=== PATIENT | male | born 1995 | race Two or more races ===

== ENCOUNTER 2017-02-05 23:26 | Emergency (ER) | payer MEDICAID ==
--- NOTE | 2017-02-06 00:06 | ED Physician Chart ---
Chief Complaint/HPI - Patient Information Date Seen:: 02/06/17 Time Seen:: 00:00 Chief Complaint:: rash History of Present Illness:: pt here for 1 day of itchy rash. it is all over. he never had this before. no sob. no oral edema. no wheeze. no fever. no BEY. no stiff neck pt has been unusually anxious lately. he is upset about something w his employer (he works as [employer])...he wont elaborate on why he is upset. he felt like he might be getting sick yesterday so he took some kind of antibiotic that he has from [place]. name unknown... He moved from [place] 1 yr ago. no travel in recent months. no one else w rash in home. he has been very anxious lately. Allergies:: Allergies Allergy/AdvReac Type Severity Reaction Status Date / Time No Known Allergies Allergy Verified 02/05/17 23:59 Historian:: Patient, Family Member Review of Systems - Review of Systems General/Constitutional: No fever, No chills, No weight loss, No weakness, No diaphoresis, No edema, No loss of appetite Skin: Skin lesions, Rash, No bruising Head: No headache, No light-headedness Eyes: No loss of vision, No pain, No diplopia ENT: No earache, No nasal drainage, No sore throat, No tinnitus Neck: No neck pain, No swelling, No thyromegaly, No stiffness, No mass noted Cardio Vascular: No chest pain, No palpitations, No PND, No orthopnea, No edema Pulmonary: No SOB, No cough, No sputum, No wheezing GI: No nausea, No vomiting, No diarrhea, No pain, No melena, No hematochezia, No constipation, No hematemesis G/U: No dysuria, No frequency, No hematuria Musculoskeletal: No bone or joint pain, No back pain, No muscle pain Endocrine: No polyuria, No polydipsia Psychiatric: No prior psych history, No depression, No anxiety, No suicidal ideation Hematopoietic: No bruising, No lymphadenopathy Allergic/Immuno: No urticaria, No angioedema Neurological: No syncope, No focal symptoms, No weakness, No paresthesia, No headache, No seizure, No dizziness, No confusion, No vertigo Past Medical History - Past Medical History Past Medical History: No significant medical hx Family History: Other (no fam hx of cardiac dz) Social History: No Drug Use Medication: Reviewed Family Medical History - Family Member Mother History Unknown: Yes Ethnicity: Non- Physical Exam - Physical Examination General/Constitutional: Awake, Well-developed, well-nourished, Alert, No distress, GCS 15, Non-toxic appearing, Ambulatory Head: Atraumatic Eyes: Lids, conjuctiva normal, PERRL, EOMI Skin: Nl inspection, No skin lesions, No ecchymosis, Well hydrated, No lymphadenopathy Other Skin comments:: red spots all over trunk and back ...small 1cm x1cm or smaller. not raised. not palpable. no insect sting lucas. lesions are too numerous to attribute to insect stings...seems more like systemic allergy. ENMT: External ears, nose nl, Nasal exam nl, Lips, teeth, gums nl Other ENMT comments:: no oral edema. pt has a patch on left tongue that has no white area on it which concerns him. 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 Neck: Nontender, Full ROM w/o pain, No JVD, No nuchal rigidity, No bruit, No mass, No stridor Respiratory: Nl effort/Exclusion, Clear to Auscultation, No Wheeze/Rhonchi/Rales Cardio Vascular: RRR, No murmur, gallop, rubs, NL S1 S2 GI: No tenderness/rebounding/guarding, No organomegaly, No hernia, Normal BS's, Nondistended, No mass/bruits, No McBurney tenderness : No CVA tenderness Extremities: No tenderness or effusion, Full ROM, normal strength in all extremities, No edema, Normal digits & nails Other Extremities comments:: rash is generalized over trunk and back /legs but no lesions on palms/soles/ nails. no intraoral lesions other than 1 spot on tongue that looks unrelated. no stridor. no wheeze. no sob. pos anxious no edema, no homans sx Neuro/Psych: Alert/oriented, DTR's symmetric, Normal sensory exam, Normal motor strength, Judgement/insight normal, Mood normal, Normal gait, No focal deficits Misc: normal gait, Normal back, No paraspinal tenderness Labs/Radiology/EKG Results - Lab Results Results: Laboratory Tests 02/05/17 02/05/17 02/05/17 00:13 00:13 00:13 WBC 3.9 L RBC 6.33 H Hgb 15.7 Hct 46.9 MCV 74.0 L MCH 24.9 L MCHC Differential 33.6 RDW 11.3 L Plt Count 157 MPV 9.2 Neutrophils % 49.0 Lymphocytes % 33.3 Monocytes % 14.7 H Eosinophils % 2.1 Basophils % 0.9 ESR 1 Sodium 131 L Potassium 3.3 L Chloride 98 Carbon Dioxide 28.4 Anion Gap 7.9 BUN 12 Creatinine 1.0 Est GFR ( Amer) > 60.0 Est GFR (Non-Af Amer) > 60.0 BUN/Creatinine Ratio 12.0 Glucose 101 Whole Bld Lactic Acid 0.72 Calcium 10.0 Total Bilirubin 0.8 AST 26 ALT 31 Alkaline Phosphatase 65 Creatine Kinase 76 Troponin I Total Protein 8.8 H Albumin 4.8 Globulin 4.0 Albumin/Globulin Ratio 1.2 02/05/17 00:13 WBC RBC Hgb Hct MCV MCH MCHC Differential RDW Plt Count MPV Neutrophils % Lymphocytes % Monocytes % Eosinophils % Basophils % ESR Sodium Potassium Chloride Carbon Dioxide Anion Gap BUN Creatinine Est GFR ( Amer) Est GFR (Non-Af Amer) BUN/Creatinine Ratio Glucose Whole Bld Lactic Acid Calcium Total Bilirubin AST ALT Alkaline Phosphatase Creatine Kinase Troponin I 0.08 H* Total Protein Albumin Globulin Albumin/Globulin Ratio - Radiology Results Results: pt refused cxr - EKG Interpretations EKG Time:: 00:50 Rhythm: nst rate `105 [place]: 47 Rate: 105 Comments:: overall nrml st/t waves ED Septic Shock - . Is Septic Shock (SBP<90, OR Lactate>4 mmol\L) present?: No Reassessment (Disposition) - Reassessment Reassessment:: pt feels better...less ichy..thinks rash is resolving. no fever, no chills. results reviewed w pt. his friend is translating. I have explained about the elev troponin and am concerned...advised admit. pt is unwilling to be a admit. he denies any cp or sob or trauma. he refused cxr. I have explained my concern to pt and his friend slowly and thoroughly 2x. have given time for qs and answered all as thoroughly as possible. pt wants to leave [facility]. have explained it is best if he sees a pmd tmrw. varicella tests pending dw pt. posibility of endocarditis dw pt. Reassessment Condition:: Improved - Diagnosis Diagnosis:: 1 rash- probable allergic reaction 2 elevated troponin of uncertain etiology 3 leaving [facility] - Patient Disposition Discharge/Transfer:: Against Medical Advice Condition at Disposition:: Improved ED Discharge Plan - Patient Disposition Admit/Discharge/Transfer: AGAINST MEDICAL ADVICE
[2017-02-06 00:31] LABS: HEMOGLOBIN 15.7 gm/dL (13.2-17.3)
[2017-02-06 00:34] LABS: % BASOPHILS 0.9 % (0.0-2.0); % EOSINOPHILS 2.1 % (0.0-5.0); % LYMPHOCYTES 33.3 % (20.0-50.0); % MONOCYTES 14.7 % (2.0-10.0); HEMATOCRIT 46.9 % (39.0-49.0); MEAN CORPUSCULAR HEMOGLOBIN 24.9 pg (26.0-30.0); MEAN CORPUSCULAR HGB CONC 33.6 pg (28.0-36.0); MEAN PLATELET VOLUME 9.2 fl; NEUTROPHILE ABSOLUTE 1.9 Th/cmm (1.8-8.0); PLATELET COUNT 157 Th/cmm (150-400); RED BLOOD COUNT 6.33 Mil/cmm (4.30-5.70); RED CELL DISTRIBUTION WIDTH 11.3 % (11.5-20.0); WHITE BLOOD COUNT 3.9 Th/cmm (4.8-10.8)
[2017-02-06 00:39] LABS: ALB/GLOB RATIO 1.2 (1.0-1.8); ALKALINE PHOSPHATASE 65 U/L (34-104); ANION GAP 7.9 (7.0-16.0); BILIRUBIN,TOTAL 0.8 mg/dL (0.3-1.0); BUN - UREA NITROGEN 12 mg/dL (7-25); CARBON DIOXIDE 28.4 mEq/L (21.0-31.0); CHLORIDE 98 mEq/L (98-107); GLUCOSE 101 mg/dL (70-105); POTASSIUM SERUM 3.3 mEq/L (3.5-5.1); SGOT 26 U/L (13-39); SGPT/ALT 31 U/L (7-52); SODIUM SERUM 131 mEq/L (136-145)
[2017-02-06] MEDS ORDERED: Potassium Chloride 20 mEq ER Tab PO ONE ×2 (01:10→01:11)
== END 2017-02-06 01:45 | disposition left against medical advice (07) ==
LOC: ER 23:26
DX: R21 Rash and other nonspecific skin eruption (principal)
CPT/HCPCS: 99285; 96374; 96375; 84484; 36415; 86787 ×2; 83605; 85025; 85652; 82550; 80053; 87040 ×2; 93005; J2930; J1200; J3490